=== PATIENT | female | born 1990 | race Caucasian/White ===

== ENCOUNTER → 2023-04-11 | Outpatient (CLI) | payer BC | END | disposition home or self-care (01) | LOC: LAB 14:48 | PROVIDERS: ATTEND Obstetrics & Gynecology Reproductive Endocrinology | DX: Z31.83 Encounter for assisted reproductive fertility procedure cycle (principal) | CPT/HCPCS: 36415; 82670; 84144; 84702 ==

== ENCOUNTER → 2023-07-18 | Outpatient (CLI) | payer BC | END | disposition home or self-care (01) | LOC: RAH 07:19 | PROVIDERS: ATTEND Obstetrics & Gynecology Reproductive Endocrinology | DX: Z31.83 Encounter for assisted reproductive fertility procedure cycle (principal) | CPT/HCPCS: 76830 ==

== ENCOUNTER → 2023-07-25 | Outpatient (CLI) | payer BC | END | disposition home or self-care (01) | LOC: RAH 08:05 | PROVIDERS: ATTEND Obstetrics & Gynecology Reproductive Endocrinology | DX: Z31.83 Encounter for assisted reproductive fertility procedure cycle (principal); N83.02 Follicular cyst of left ovary; N83.01 Follicular cyst of right ovary | CPT/HCPCS: 76830 ==

== ENCOUNTER → 2023-07-27 | Outpatient (CLI) | payer BC | END | disposition home or self-care (01) | LOC: RAH 08:04 | PROVIDERS: ATTEND Obstetrics & Gynecology Reproductive Endocrinology | DX: Z31.83 Encounter for assisted reproductive fertility procedure cycle (principal); N83.01 Follicular cyst of right ovary; N83.02 Follicular cyst of left ovary | CPT/HCPCS: 76830 ==

== ENCOUNTER → 2023-08-05 | Outpatient (CLI) | payer BC | END | disposition home or self-care (01) | LOC: RAH 07:43 | PROVIDERS: ATTEND Obstetrics & Gynecology Reproductive Endocrinology | DX: N88.8 Other specified noninflammatory disorders of cervix uteri (principal); Z31.83 Encounter for assisted reproductive fertility procedure cycle; R93.89 Abnormal findings on diagnostic imaging of other specified body structures | CPT/HCPCS: 76830 ==

== ENCOUNTER → 2023-08-19 | Outpatient (CLI) | payer BC, SELFPAY | END | disposition home or self-care (01) | LOC: LAB 15:11 | PROVIDERS: ATTEND Obstetrics & Gynecology Reproductive Endocrinology | DX: Z32.00 Encounter for pregnancy test, result unknown (principal) | CPT/HCPCS: 36415; 84702 ==

== ENCOUNTER → 2023-09-07 | Outpatient (CLI) | payer BC, SELFPAY | END | disposition home or self-care (01) | LOC: RAH 09:14 | PROVIDERS: ATTEND Obstetrics & Gynecology Reproductive Endocrinology | DX: O09.811 Supervision of pregnancy resulting from assisted reproductive technology, first trimester (principal); Z3A.01 Less than 8 weeks gestation of pregnancy | CPT/HCPCS: 76801 ==

== ENCOUNTER → 2023-09-19 | Outpatient (CLI) | payer BC | END | disposition home or self-care (01) | LOC: RAH 07:10 | PROVIDERS: ATTEND Obstetrics & Gynecology Reproductive Endocrinology | DX: O09.811 Supervision of pregnancy resulting from assisted reproductive technology, first trimester (principal); Z3A.08 8 weeks gestation of pregnancy | CPT/HCPCS: 76801 ==

== ENCOUNTER → 2024-02-02 | Outpatient (CLI) | payer BC | END | disposition home or self-care (01) | LOC: RAH 08:45 | PROVIDERS: ATTEND Obstetrics & Gynecology | DX: R10.11 Right upper quadrant pain (principal) | CPT/HCPCS: 76705 ==